=== PATIENT | male | born 1970 | race Two or more races ===

== ENCOUNTER 2019-11-16 14:38 | Emergency (ER) | payer SELFPAY ==
[~2019-11-16] VITALS: Ht 180.3 cm; Wt 89.0 kg
[2019-11-16] MEDS ORDERED: ONDANSETRON HCL 4MG/2ML INJ IV STA (15:08)
[2019-11-16] MEDS ORDERED: SODIUM CHLORIDE 0.9% 1,000 ML IV ONE (15:08)
[2019-11-16] MEDS ORDERED: ASPIRIN 81MG TABLET PO ONE (15:15)
[2019-11-16 15:27] LABS: BASOPHILS % 0.8 % (0.0-2.0); EOSINOPHILS % 1.4 % (0.0-5.0); HEMATOCRIT. 50.6 % (42.0-52.0); HEMOGLOBIN. 17.3 g/dL (14.0-18.0); LYMPHOCYTES % 31.2 % (20.0-50.0); MEAN CORPUSCULAR HEMOGLOBIN 28.9 pg (28.0-32.0); MEAN CORPUSCULAR VOLUME 84.7 fL (80.0-94.0); MEAN PLATELET VOLUME 7.3 fl (7.4-10.4); MONOCYTES % 6.2 % (2.0-8.0); NEUTROPHILS % 60.4 % (40.0-76.0); PLATELET 249 x1000/uL (130-400); RED BLOOD CELL COUNT 5.98 mill/uL (4.7-6.1); RED CELL DISTRIBUTION WIDTH 15.1 % (11.6-14.6)
[2019-11-16 15:33] LABS: CHLORIDE 107 mEq/L (98-107)
[2019-11-16 15:37] LABS: ETHANOL BLOOD < 10 mg/dL
[2019-11-16 17:18] LABS: *BARBITURATES SCREEN URINE NEGATIVE (NEGATIVE)
[2019-11-16 17:19] LABS: *AMPHETAMINES SCREEN URINE NEGATIVE (NEGATIVE); *BENZODIAZEPINES SCREEN URINE NEGATIVE (NEGATIVE); *COCAINE SCREEN URINE NEGATIVE (NEGATIVE); METHADONE URINE SCREEN NEGATIVE (NEGATIVE); OPIATES URINE SCREEN NEGATIVE (NEGATIVE); PHENCYCLIDINE URINE SCREEN NEGATIVE (NEGATIVE)
[2019-11-16 17:20] LABS: CANNABINOID URINE SCREEN PRESUMTIVE POSITIVE (NEGATIVE)
[2019-11-16 18:26] VITALS: BP 167/98
== END 2019-11-16 18:50 | disposition home or self-care (01) ==
LOC: ER 14:38
DX: R07.89 Other chest pain (principal); R11.2 Nausea with vomiting, unspecified; R00.1 Bradycardia, unspecified; F12.90 Cannabis use, unspecified, uncomplicated
CPT/HCPCS: 36415; 71045; 80053; 80305; 80320; 83690; 83880; 84484; 85025; 93005; 96361; 96374; 99285; J2405; J7030; Z7610; G0480